=== PATIENT | female | born 1955 | race Hispanic/Latino ===

== ENCOUNTER → 2025-01-10 | Outpatient (CLI) | payer MEDICARE, MEDICAID ==
--- NOTE | 2025-01-10 13:45 | HMCIMG ---
Exam Type: WRIST COMP 3+VWS LT Clinical Information: BILATERAL HAND NUMBNESS Comparison: None Findings: The bone examination is unremarkable. No fractures or dislocations are seen. No radiopaque foreign bodies are noted. Soft tissues are preserved. IMPRESSION: Normal examination.
--- NOTE | 2025-01-10 14:13 | HMCIMG ---
Exam Type: WRIST COMP 3+VWS RT Clinical Information: BILATERAL HAND NUMBNESS Comparison: None Findings: There is osteopenia. The examination is otherwise unremarkable. No fractures or dislocations are seen. No radiopaque foreign bodies are noted. Soft tissues are preserved. IMPRESSION: Osteopenia. Otherwise normal exam.
== END | disposition home or self-care (01) ==
LOC: RAH 13:00
PROVIDERS: ATTEND Family Medicine
DX: M85.88 Other specified disorders of bone density and structure, other site (principal); R20.0 Anesthesia of skin
CPT/HCPCS: 73110